=== PATIENT | male | born 1950 | race Caucasian/White ===

== ENCOUNTER → 2019-12-04 14:38 | Outpatient (CLI) | payer MEDICARE, SELFPAY ==
--- NOTE | 2019-12-04 | DI.MRI.S_ITS ---
PROCEDURE: MR SHOULDER LT WO CON INDICATIONS: Strain of unspecified muscle, fascia and tendon TECHNIQUE: Noncontrast oblique coronal T2 fast spin echo with fat saturation, oblique sagittal T1 spin echo and T2 fast spin echo with fat saturation, axial T1 spin echo and T2 fast spin echo with fat saturation through the shoulder. COMPARISON: None. FINDINGS: Image quality: Excellent. Rotator cuff: There is full-thickness rupture of the posterior fibers of the distal supraspinatus and distal infraspinatus at their insertions greater tuberosity of humeral head with up to 3.2 cm medial retraction of torn tendon fibers to the level of the acromioclavicular joint. Most anterior fibers of the distal supraspinatus shows tendinosis or low-grade articular surface partial-thickness tear. Distal subscapularis tendinosis and low to moderate grade intrasubstance partial thickness tear is seen. Sagittal images demonstrate mild supraspinatus muscle atrophy. Bones and bursae: Edema involving greater tuberosity of humeral head at distal rotator cuff tendon insertion is seen. No discrete fracture line is noted. Mild to moderate acromioclavicular joint and glenohumeral joint osteoarthritic changes are seen. Moderate amount of subacromial subdeltoid bursal fluid is also noted. No gross intra-articular loose body. Capsule and soft tissues: In the absence of intra-articular contrast, severe anterior labral tear at 11 to 2:00 position is seen. The glenohumeral ligaments appear intact. Tendinosis involving proximal intra-articular portion of long head of biceps is seen. The rotator interval appears normal, without fibrosis. The coracohumeral ligament is normal in thickness. IMPRESSION: 1. Full-thickness rupture involving the 2 posterior fibers of the distal supraspinatus and infraspinatus with up to 3.2 cm medial retraction of torn tendon fibers to the level of acromion. Tendinosis and low-grade articular surface partial-thickness tear involving anterior fibers distal supraspinatus. Distal subscapularis tendinosis and low to moderate grade intrasubstance partial-thickness tear. Mild supraspinatus muscle atrophy. 2. [id number] acromioclavicular joint and glenohumeral joint osteoarthritis. 3. Suggestion of superior anterior labral tear extending from 11 to 2:00 position. Tendinosis involving proximal intra-articular portion of long head of biceps. Dictated by: Marques Matamoros M.D. on 12/05/2019 at 10:17 Approved by: Marques Matamoros M.D. on 12/05/2019 at 10:33
== END ==
PROVIDERS: PCP Specialist; Referring Provider Specialist; Visit Provider Family Medicine
DX: S46.012A Strain of muscle(s) and tendon(s) of the rotator cuff of left shoulder, initial encounter (principal); M19.012 Primary osteoarthritis, left shoulder; X58.XXXA Exposure to other specified factors, initial encounter
CPT/HCPCS: 73221

== ENCOUNTER → 2020-08-04 11:14 | Outpatient (CLI) | payer MEDICARE, SELFPAY ==
--- NOTE | 2020-08-04 | DI.MRI.S_ITS ---
PROCEDURE: MR SHOULDER RT WO CON INDICATIONS: Other shoulder lesions, right shoulder TECHNIQUE: Noncontrast oblique coronal T2 fast spin echo with fat saturation, oblique sagittal T1 spin echo and T2 fast spin echo with fat saturation, axial T1 spin echo and T2 fast spin echo with fat saturation through the shoulder. COMPARISON: [facility], MR, MR SHOULDER LT WO CON, 12/04/2019, 15:13. FINDINGS: Image quality: Excellent. Rotator cuff: There is a full-thickness tear of the superior cuff from its insertion involving the majority of the supraspinatus and anterior fibers of the infraspinatus. There is associated retraction of torn fibers by approximately 3.5 cm. The tear measures approximately 3 cm in anteroposterior dimension at the insertion. There are likely a few residual intact fibers within the anterior supraspinatus. There are also residual intact fibers in the posterior infraspinatus. The subscapularis demonstrates tendinopathy with mild interstitial partial tearing at its insertion. The teres minor appears intact. Sagittal images demonstrate minimal atrophy of the supraspinatus and infraspinatus muscles.. Bones and bursae: No bone marrow contusions or fractures. There is moderate acromioclavicular joint degeneration. Mild inferior spurring is demonstrated along the lateral acromion. The acromion demonstrates conventional anatomy, without an os acromiale. A small amount of subacromial-subdeltoid bursal fluid is present communicating with the glenohumeral joint. Capsule and soft tissues: There is mild degenerative signal within the posterosuperior labrum. In the absence of intra-articular contrast, the glenohumeral ligaments appear intact. The long head of the biceps tendon demonstrates normal location and morphology. The rotator interval appears normal, without fibrosis. IMPRESSION: 1. Full-thickness tear of the superior cuff involving the majority of the supraspinatus and anterior fibers of the infraspinatus with associated retraction of torn fibers. There is minimal atrophy of the supraspinatus and infraspinatus muscles. 2. Moderate acromioclavicular joint degeneration with mild inferior spurring along the lateral acromion. Small amount of subacromial/subdeltoid bursal fluid is present communicating with the glenohumeral joint. 3. Mild tendinopathy and mild interstitial partial tearing within the distal subscapularis. 4. Degenerative signal within the posterior superior labrum. Dictated by: Eduardo Raines M.D. on 08/06/2020 at 11:03 Approved by: Eduardo Raines M.D. on 08/06/2020 at 11:18
== END ==
PROVIDERS: PCP Family Medicine; Referring Provider Family Medicine; Visit Provider Family Medicine
DX: M75.81 Other shoulder lesions, right shoulder (principal); M75.121 Complete rotator cuff tear or rupture of right shoulder, not specified as traumatic; M19.011 Primary osteoarthritis, right shoulder
CPT/HCPCS: 73221